=== PATIENT | female | born 1965 | race Caucasian/White ===

== ENCOUNTER 2017-08-16 10:26 | Day surgery (SDC) | payer MEDICAID, SELFPAY ==
[2017-08-16 10:47] VITALS: BP 158/92; PULSE 52; RESP 16; TEMP 37.6; O2SAT 97; BMI 33.0
--- NOTE | 2017-08-16 11:30 | RAD_ITS ---
STUDY: X-RAY - CERVICAL SPINE REASON FOR EXAM: Female, 52 years old. Documentation intraprocedural images. TECHNIQUE: 4 digital documentation nondiagnostic view(s) of the cervical spine were obtained. COMPARISON: None FINDINGS: 4 intraprocedural nondiagnostic images show multiple needle placements. RAD/Cerv Spine 4 or 5 Views IMPRESSION: Nondiagnostic intraprocedural documentation images. Electronically Signed: Wicho Simmons MD at 13:04 EDT , Service support ,
[2017-08-16] MEDS: MethylPREDNISolone Acetate 80 MG/ML Vial (11:39)
[2017-08-16] MEDS: Bupivacaine 0.25% 30 ML Vial (11:39)
[2017-08-16 11:45] VITALS: BP 157/119; BP 158/92; PULSE 52; RESP 14; TEMP 36.6; O2SAT 95
--- NOTE | 2017-08-16 11:48 | PCM.OPRPT ---
Problem List (1) Degeneration of cervical disc without myelopathy Status: Chronic (2) Cervical spondylosis Status: Chronic Report of Operation Date of Procedure: 08/16/17 Pre-Operative Diagnosis: Cervical spondylosis, cervical degenerative disc disease, cervical facet arthropathy Post-Operative Diagnosis: Cervical spondylosis, cervical degenerative disc disease, cervical facet arthropathy Surgery/Procedure Performed:: Right sided cervical facet steroid injection C4, C5, C6, C7 Description of Surgical Findings:: PROCEDURE: Right-sided cervical facet steroid injection C4, C5, C6, C7 PREOPERATIVE DIAGNOSES: Cervical spondylosis, cervical degenerative disc disease, and cervical facet arthropathy POSTOPERATIVE DIAGNOSES: Cervical spondylosis, cervical degenerative disc disease, and cervical facet arthropathy ANESTHESIA: MAC COMPLICATIONS: None BLOOD LOSS: Minimal PROCEDURE IN DETAIL: History and physical today was reviewed. Risks and benefits of the procedure were explained. The patient understood, agreed to our procedure, and informed consent was obtained. IV inserted per routine protocol. The patient was taken to the operating room, placed in a prone position with a pillow positioned underneath the chest. The neck area was prepped and draped in a sterile fashion using iodine x3. Under fluoroscopy guidance, on AP view, C4 through C7 vertebral bodies were visualized. Under direct physician fluoroscopy at approximately 15? angle starting on the right C4 ending on the right C7 passing through C5-C6 using a 25-gauge 3-1/2 inch spinal needle the needle was advanced via the skin the tip of the needle was maneuvered and directed towards the epiphyseal junction of each corresponding vertebra, confirmation was obtained on AP oblique as well as lateral view a total of 4 cc of preservative-free 0.25% Marcaine with 80 mg of Depo-Medrol were injected in divided doses between those 4 levels the needles were then removed intact The patient experienced no signs or symptoms of intrathecal, intravascular injection. The patient experienced no paraesthesia. The procedure was completed without any apparent difficulty, any complication. The patient appeared to tolerate well. ASSESSMENT AND PLAN: This is a 52-year-old Female with cervical spondylosis, cervical degenerative disc disease, and cervical facet arthropathy, status post right-sided cervical facet steroid injection C4 through C7 the patient will continue her current medications. The patient will follow up in approximately 2 weeks fo reevaluation.
[2017-08-16 11:50] VITALS: BP 155/95; BP 158/92; PULSE 55; RESP 16; O2SAT 97
[2017-08-16 11:55] VITALS: BP 158/92; BP 169/94; PULSE 56; RESP 16; O2SAT 98
[2017-08-16 12:00] VITALS: BP 150/86; BP 158/92; PULSE 52; RESP 16; TEMP 36.9; O2SAT 94
[2017-08-16 12:43] VITALS: BP 158/92
== END 2017-08-16 12:44 | disposition home or self-care (01) ==
LOC: SDC 10:30 → AC 10:30
PROVIDERS: Family Provider Internal Medicine; PCP Internal Medicine; Visit Provider Anesthesiology Pain Medicine
PROC: 3E0U3BZ Introduction of Anesthetic Agent into Joints, Percutaneous Approach (ICD-10-PCS; CPT 64490; principal; 2017-08-16 11:25)
DX: M50.10 Cervical disc disorder with radiculopathy, unspecified cervical region (principal); M47.22 Other spondylosis with radiculopathy, cervical region; Z79.891 Long term (current) use of opiate analgesic; I10 Essential (primary) hypertension; K21.9 Gastro-esophageal reflux disease without esophagitis; E11.9 Type 2 diabetes mellitus without complications; M79.7 Fibromyalgia; K58.9 Irritable bowel syndrome, unspecified; M19.90 Unspecified osteoarthritis, unspecified site; G47.33 Obstructive sleep apnea (adult) (pediatric); E78.5 Hyperlipidemia, unspecified; Z86.73 Personal history of transient ischemic attack (TIA), and cerebral infarction without residual deficits; Z79.899 Other long term (current) drug therapy; F41.9 Anxiety disorder, unspecified; F32.9 Major depressive disorder, single episode, unspecified
CPT/HCPCS: 64490; 64491; 64492; 72050; J7120